=== PATIENT | male | born 1985 | race Caucasian/White ===

== ENCOUNTER 2021-08-04 19:26 | Emergency (ER) | payer BC, OTHER ==
[~2021-08-04] VITALS: Ht 180.3 cm; Wt 193.5 kg
[2021-08-04 19:33] VITALS: BP 164/102
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
== END 2021-08-04 19:49 | disposition home or self-care (01) ==
LOC: ER FS 19:32
DX: S01.112A Laceration without foreign body of left eyelid and periocular area, initial encounter (principal); W22.8XXA Striking against or struck by other objects, initial encounter
CPT/HCPCS: 99282

== ENCOUNTER 2023-04-11 10:41 | Emergency (ER) | payer SELFPAY ==
[~2023-04-11] VITALS: Ht 180.3 cm; Wt 193.7 kg
--- NOTE | 2023-04-11 10:48 | ED GI ---
General Chief Complaint: General Problems/Pain Stated Complaint: RECTAL PAIN History of Present Illness Date Seen by Provider: Apr 11, 2023 Time Seen by Provider: 10:48 Initial Comments 37-year-old male with left buttock pain. He reports been going on a couple days. He first noticed it after a large bowel movement. He reports he is just being in a little bit worse. He is concerned about maybe having a hemorrhoid. He denies any fevers chills or other systemic complaints. Allergies and Home Medications Patient Home Medication List Home Medication List Reviewed: Yes Sulfamethoxazole/Trimethoprim (Bactrim Ds Tablet) 1 Each Tablet, 1 EACH PO BID Prescribed by: IVÁN OROZCO on 04/11/23 1058 Review of Systems Review of Systems Constitutional: No chills, No fever Respiratory: No Symptoms Reported Cardiovascular: No Symptoms Reported Gastrointestinal: See HPI Genitourinary: No Symptoms Reported Musculoskeletal: no symptoms reported Skin: see HPI Psychiatric/Neurological: No Symptoms Reported Physical Exam Vital Signs Vital Signs - First Documented 04/11/23 04/11/23 10:42 11:00 Temp 36.7 Pulse 115 Resp 18 B/P (MAP) 147/83 (104) Pulse Ox 100 O2 Delivery Room Air Capillary Refill : Height/Weight/BMI Height: '" Weight: lbs. oz. kg; 59.00 BMI Method: General Appearance: obese Respiratory: lungs clear, normal breath sounds Cardiovascular: normal peripheral pulses, regular rate, rhythm Gastrointestinal: non tender, soft Rectal: No hemorrhoids Neurologic/Psychiatric: alert, normal mood/affect, oriented x 3 Skin: other (Mild cellulitis and induration of the left buttock no abscess noted at this time) Progress/Results/Core Measures Results/Orders Vital Signs/I&O 04/11/23 04/11/23 10:42 11:00 Temp 36.7 36.5 Pulse 115 97 Resp 18 17 B/P (MAP) 147/83 (104) 144/79 Pulse Ox 100 O2 Delivery Room Air Room Air Progress Progress Note : Progress Note Patient with no obvious external hemorrhoids. He does have some mild induration and cellulitis formation on the left buttock. I will start him on Bactrim. Recommend he follow-up towards the middle or end of next week with his primary for recheck. He is stable and discharged home Departure Impression Primary Impression: Cellulitis of buttock, left Disposition: 01 HOME, SELF-CARE Condition: Stable Departure-Patient Inst. Referrals: JOSE HERNANDEZ MD (PCP) Primary Care Physician Patient Instructions: Cellulitis (Skin Infection), Adult (DC) Add. Discharge Instructions: Keep area clean with warm soapy water. You may also use a Hibiclens which is available [id number]. Tylenol ibuprofen as needed. Warm moist heat. Please take antibiotic as prescribed. Follow-up with your primary care provider towards the end of next week for recheck, sooner if symptoms worsen All discharge instructions reviewed with patient and/or family. Voiced understanding. Scripts Sulfamethoxazole/Trimethoprim (Bactrim Ds Tablet) 1 Each Tablet 1 EACH PO BID, #20 TAB Prov: IVÁN OROZCO DO 04/11/23 IVÁN OROZCO DO Apr 11, 2023 10:48
[2023-04-11] MEDS ORDERED: SULF1TAB38 PO (10:58)
[2023-04-11 11:00] VITALS: BP 144/79
== END 2023-04-11 11:00 | disposition home or self-care (01) ==
LOC: EDUNIT# 10:41 → ER FS 10:42
DX: L03.317 Cellulitis of buttock (principal); Z28.310 Unvaccinated for COVID-19
CPT/HCPCS: 99281

== ENCOUNTER 2023-08-17 19:29 | Outpatient (CLI) | payer BC ==
[~2023-08-17 19:29] MED LIST: SULF1TAB38 PO
== END 2023-08-18 05:10 ==
LOC: SLEEP 19:29
PROVIDERS: ATTEND Registered Nurse
DX: G47.33 Obstructive sleep apnea (adult) (pediatric) (principal)
CPT/HCPCS: 95811